=== PATIENT | female | born 1945 | race Caucasian/White ===

== ENCOUNTER → 2016-12-06 | Outpatient (CLI) | payer MEDICARE, BC ==
--- NOTE | ~2016-12-06 | MY11 ---
[facility] A Service of [facility] RADIOLOGY TEXT RESULTS PATIENT: PHOENIX MONTANO LOCATION: [facility] : 49 UNIT #: [id number] AGE: [address]: Donna Stewart APRN SEX: F ORDER DR: [id number] [facility] [address] [place], [place] [address] [id number] O MR#: [id number] Acc #: [id number] NAME: PHOENIX MONTANO : 1945 SEX: F STUDY DATE/TIME: 12/06/2016 8:32 UNIT: [facility] ROOM: STUDY DESCRIPTION: MY Mammogram Screening Dig Lex Attending Physician: Donna Stewart A.P.R.N. Referring Physician: Donna Stewart A.P.R.N. Ordering Physician: Donna Stewart A.P.R.N. Primary Care Physician: Donna Stewart A.P.R.N. MEDICAL IMAGING REPORT This report is preliminary unless electronic signature is present EXAM Digital screening mammogram 12/06/2016. HISTORY 71-year-old female. No risk elevation. Annual screen. New baseline. COMPARISON None. Prior images not available. FINDINGS Digital imaging of each breast was completed utilizing a two-view examination of each breast in craniocaudal and mediolateral-oblique projections. Review and interpretation of digital mammograms include a second review in conjunction with FDA-approved CAD device. There is a normal parenchymal presentation bilaterally consistent with the patient's age. There are no breast masses imaged and no parenchymal asymmetry is visualized. There are no suspicious microcalcifications and I see no focal architectural disturbance. IMPRESSION Negative screening digital mammogram. One-year followup recommended. Patients over the age of 40 are entered into a reminder system with target due date for the next mammogram. A result letter will also be sent to the patient. BIRADS: 1 Negative ADDENDUM Breast parenchyma is predominantly fatty replaced Dictated by... Fady Mina M.D. [facility] A Service of [facility] RADIOLOGY TEXT RESULTS PATIENT: PHOENIX MONTANO LOCATION: [facility] : 49 UNIT #: [id number] AGE: [address]: Donna Stewart APRN SEX: F ORDER DR: THIS IS AN ELECTRONICALLY VERIFIED REPORT Fady Mina M.D. at 12/06/2016 10:53 AM Renay TD: 12/06/2016 10:04 JOB #: [id number] MEDICAL IMAGING REPORT Page 1 of 1 COPY
== END | disposition home or self-care (01) ==
LOC: CWCC 08:04
DX: Z12.31 Encounter for screening mammogram for malignant neoplasm of breast (principal); R92.8 Other abnormal and inconclusive findings on diagnostic imaging of breast
CPT/HCPCS: G0202

== ENCOUNTER → 2017-01-16 | Outpatient (CLI) | payer MEDICARE, BC ==
--- NOTE | ~2017-01-16 | CT2 ---
[facility] A Service of [facility] RADIOLOGY TEXT RESULTS PATIENT: PHOENIX MONTANO LOCATION: [facility] : 47 UNIT #: [id number] AGE: [address]: Lisa Austin MD SEX: F ORDER DR: [id number] [id number]. [place], [place] [address] [id number] O MR#: [id number] Acc #: [id number] NAME: PHOENIX MONTANO. : 1945 SEX: F STUDY DATE/TIME: 01/16/2017 15:29 UNIT: [facility] ROOM: STUDY DESCRIPTION: CT Abd and Pelv W Cont Attending Physician: Lisa Austin M.D. Referring Physician: Lisa Austin M.D. Ordering Physician: Lisa Austin M.D. Primary Care Physician: Lisa Austin M.D. MEDICAL IMAGING REPORT This report is preliminary unless electronic signature is present EXAM CT abdomen and pelvis with contrast INDICATION Constant diarrhea for the past month. Intermittent abdominal cramping for the past 1-2 months. PROCEDURE Contrast-enhanced CT of the abdomen and pelvis. 100 mL of Isovue-370. This CT exam was performed with one or more of the following radiation dose reduction techniques: automatic exposure control, adjustment of mA and/or kV according to patient size, and iterative reconstruction. COMPARISON None. FINDINGS Included lung bases are clear. Liver, spleen, kidneys, adrenal glands, pancreas unremarkable. Gallbladder is completely filled with stones. No definite pericholecystic inflammatory change. The bowel loops are nondilated. Appendix is normal. PELVIS WITH CONTRAST: No pelvic mass or fluid. Uncomplicated sigmoid diverticula. No aggressive-appearing bone lesion. IMPRESSION 1. No acute findings. 2. The gallbladder is completely filled with stones but there is no definite pericholecystic inflammation by CT. Correlate with the patients symptoms. If further evaluation is desired clinically, a right upper quadrant ultrasound may be helpful. 3. Uncomplicated sigmoid diverticula. [facility] A Service of [facility] RADIOLOGY TEXT RESULTS PATIENT: PHOENIX MONTANO LOCATION: [facility] : 49 UNIT #: [id number] AGE: [address]: Lisa Austin MD SEX: F ORDER DR: 4. Appendix is normal. Dictated by... Dg Rosales M.D. THIS IS AN ELECTRONICALLY VERIFIED REPORT Dg Rosales M.D. at 01/18/2017 1:53 PM EED/lina TD: 01/17/2017 09:05 JOB #: [id number] MEDICAL IMAGING REPORT Page 1 of 1 COPY
[2017-01-16 16:06] LABS: POC - CREATININE 0.75 mg/dL (0.44-1.03); POC - GFR >60.0 mL/min (>60)
== END | disposition home or self-care (01) ==
LOC: CCAT 13:43
PROVIDERS: Family Medicine
DX: R10.84 Generalized abdominal pain (principal); R63.4 Abnormal weight loss; R19.7 Diarrhea, unspecified; K80.20 Calculus of gallbladder without cholecystitis without obstruction; K57.30 Diverticulosis of large intestine without perforation or abscess without bleeding
CPT/HCPCS: 74177; 82565; Q9967

== ENCOUNTER → 2017-01-26 | Outpatient (CLI) | payer MEDICARE ==
--- NOTE | ~2017-01-26 | US6 ---
[facility] A Service of [facility] RADIOLOGY TEXT RESULTS PATIENT: PHOENIX MONTANO LOCATION: [facility] : 49 UNIT #: [id number] AGE: [address]: Lisa Austin MD SEX: F ORDER DR: [id number] [facility] [address] [place], [place] [address] [id number] O MR#: [id number] Acc #: [id number] NAME: PHOENIX MONTANO : 1945 SEX: F STUDY DATE/TIME: 01/26/2017 8:32 UNIT: [facility] ROOM: STUDY DESCRIPTION: US Abdominal Limited Attending Physician: Lisa Austin M.D. Referring Physician: Lisa Austin M.D. Ordering Physician: Lisa Austin M.D. Primary Care Physician: Lisa Austin M.D. MEDICAL IMAGING REPORT This report is preliminary unless electronic signature is present EXAM Right upper quadrant ultrasound 01/26/2017 HISTORY Abdomen pain and diarrhea for 6 weeks. Cholelithiasis noted on CT scan of the abdomen and pelvis 01/16/2017. Gallbladder ultrasound was suggested for further evaluation. FINDINGS The liver is homogeneous in echotexture demonstrates no cystic or solid mass lesions. The intra and extrahepatic bile ducts are not dilated. The gallbladder is distended and contains multiple shadowing gallstones but there is no evidence of gallbladder wall thickening or pericholecystic fluid. The common duct measures 3 mm. The pancreas and right kidney are normal. IMPRESSION Distended gallbladder with multiple gallstones. No evidence of gallbladder wall thickening or pericholecystic fluid. No intra or extrahepatic biliary ductal dilatation. Dictated by... Ray Smart M.D. THIS IS AN ELECTRONICALLY VERIFIED REPORT Ray Smart M.D. at 01/27/2017 8:07 AM KRT/to TD: 01/26/2017 11:37 JOB #: [id number] MEDICAL IMAGING REPORT Page 1 of 1 COPY
== END | disposition home or self-care (01) ==
LOC: CGUS 08:10
DX: K80.20 Calculus of gallbladder without cholecystitis without obstruction (principal); K82.8 Other specified diseases of gallbladder
CPT/HCPCS: 76705